=== PATIENT | female | born 1995 | race Caucasian/White ===

== ENCOUNTER 2017-11-19 07:44 | Emergency (ER) | payer SELFPAY ==
[~2017-11-19] VITALS: Ht 152.4 cm; Wt 70.0 kg
[~2017-11-19 07:44] MED LIST: POLY10O LEFT EYE
[2017-11-19 07:50] VITALS: BP 131/81; PULSE 80; RESP 16; TEMP 97.5; O2SAT 99
[2017-11-19] MEDS ORDERED: SODIUM CHLOR 0.9% 1000 ML INJ 1,000 ML IV ONE (08:30)
[2017-11-19] MEDS ORDERED: KETOROLAC TROMETHAMINE 30 MG/ML (IVP) VIAL IV PUSH ONE (08:30)
[2017-11-19] MEDS ORDERED: ONDANSETRON HCL 4 MG/2 ML VIAL IV PUSH ONE (08:30)
[2017-11-19 09:10] LABS: AUTOMATED NEUTROPHIL # 10.4 TH/MM3 (1.8-7.7); BASOPHIL # 0.1 TH/MM3 (0-0.2); BASOPHIL % 0.4 % (0.0-2.0); EOSINOPHIL # 0.1 TH/MM3 (0-0.4); EOSINOPHIL % 0.7 % (0.0-4.0); HEMATOCRIT 43.7 % (35.0-46.0); HEMOGLOBIN 15.8 GM/DL (11.6-15.3); LYMPH % 13.7 % (9.0-44.0); LYMPHOCYTE # 1.8 TH/MM3 (1.0-4.8); MEAN CELL VOLUME 82.3 FL (80.0-100.0); MEAN CORPUSCULAR HEMOGLOBIN 29.8 PG (27.0-34.0); MONO % 4.7 % (0.0-8.0); MONOCYTE # 0.6 TH/MM3 (0-0.9); NEUT % 80.5 % (16.0-70.0); PLATELET COUNT 399 TH/MM3 (150-450); RED BLOOD COUNT 5.32 MIL/MM3 (4.00-5.30); WHITE BLOOD COUNT 12.9 TH/MM3 (4.0-11.0)
[2017-11-19 09:13] LABS: MEAN CORPUSCULAR HGB CONC 36.2 % (32.0-36.0)
[2017-11-19 09:29] LABS: BACTERIA, URINE MANY /hpf; BILIRUBIN, URINE NEG (NEG); BLOOD, URINE SMALL (NEG); GLUCOSE,URINE NEG (NEG); KETONE, URINE 10 mg/dL (NEG); MUCUS URINE FEW /lpf (OCC); NITRITE,URINE NEG (NEG); PH, URINE 8.5 (5.0-8.5); SQUAMOUS EPITHELIAL CELL URINE 34 /hpf (0-5); URINE COLOR YELLOW (YELLW/STRAW); URINE LEUKOCYTE ESTERASE LARGE (NEG)
[2017-11-19 09:38] LABS: ALBUMIN 4.8 GM/DL (3.4-5.0); AST (GOT) 21 U/L (15-37); BICARBONATE 23.9 MEQ/L (21.0-32.0); BLOOD UREA NITROGEN 15 MG/DL (7-18); CHLORIDE 101 MEQ/L (98-107); CREATININE 1.11 MG/DL (0.50-1.00); GLOMERULAR FILTRATION RATE 61 ML/MIN (>89); GLUCOSE,RANDOM 119 MG/DL (74-106); SODIUM (NA) 136 MEQ/L (136-145)
--- NOTE | 2017-11-19 09:39 | RADRPT ---
EXAM DATE/TIME: 11/19/2017 09:23 [place] COMPARISON: No previous studies available for comparison. INDICATIONS : Left sided flank pain ORAL CONTRAST: No oral contrast ingested. RADIATION DOSE: 5.59 CTDIvol (mGy) MEDICAL HISTORY : None SURGICAL HISTORY : None. ENCOUNTER: Initial ACUITY: 1 day PAIN SCALE: 7/10 LOCATION: Left flank TECHNIQUE: Volumetric scanning of the abdomen and pelvis was performed. Using automated exposure control and ad justment of the mA and/or kV according to patient size, radiation dose was kept as low as reasonably achievable to obtain optimal diagnostic quality images. DICOM format image data is available electro nically for review and comparison. FINDINGS: LOWER LUNGS: The visualized lower lungs are clear. LIVER: Homogeneous density without lesion. There is no dilation of the biliary tree. No calcified gallston es. SPLEEN: Normal size without lesion. PANCREAS: Within normal limits. KIDNEYS: 3 x 4 mm obstructing left UVJ calcified calculus with moderate left hydroureteronephrosis and promine nt her nephric stranding. No additional radiopaque renal or ureteral calculi. No significant contour deforming abnormality. ADRENAL GLANDS: Within normal limits. VASCULAR: There is no aortic aneurysm. BOWEL/MESENTERY: The stomach, small bowel, and colon demonstrate no acute abnormality. Normal appendix. There is no f ree intraperitoneal air or fluid. ABDOMINAL WALL: Within normal limits. RETROPERITONEUM: There is no lymphadenopathy. BLADDER: Nearly completely decompressed. REPRODUCTIVE: Within normal limits. INGUINAL: There is no lymphadenopathy or hernia. MUSCULOSKELETAL: Within normal limits for patient age. CONCLUSION: 1. 3 x 4 mm obstructing distal left UVJ calcified ureteral calculus with associated moderate left hyd roureteronephrosis. Prominent perinephric stranding is nonspecific but may be seen with superimposed pyonephrosis. Clinical correlation is recommended. Thomas Pierce MD on November 19, 2017 at 9:34 Board Certified Radiologist. This report was verified electronically.
[2017-11-19 09:41] LABS: ALKALINE PHOSPHATASE 82 U/L (45-117); ALT (GPT) 26 U/L (10-53); TOTAL BILIRUBIN ADULT 0.5 MG/DL (0.2-1.0); TOTAL PROTEIN 8.1 GM/DL (6.4-8.2)
[2017-11-19] MEDS ORDERED: cefTRIAXone INJ 1,000 MG in SODIUM CHLORIDE 0.9% INJ 100 ML IV ONE (10:00)
[2017-11-19] MEDS ORDERED: CIPR-9 PO (10:09)
[2017-11-19] MEDS ORDERED: TAMS5CAP PO (10:09)
[2017-11-19] MEDS ORDERED: ZOFR4TAB3 SL (10:09)
[2017-11-19] MEDS ORDERED: NORC5TAB PO (10:09)
--- NOTE | 2017-11-19 10:09 | PD ---
HPI Chief Complaint: Abdominal Pain Time Seen by Provider: 08:16 Travel History International Travel<30 days: No Contact w/Intl Traveler<30days: No Traveled to known affect area: No History of Present Illness HPI Patient is a 22 year old female who comes in complaining of right flank pain with nausea and vomiting that started this morning. She says she woke up with the pain around 6AM and noticed blood in her urine. She denies fever or chills. She says "I don't feel good." She has irregular periods. She denies vaginal discharge. She says she used ecstasy 2 days ago and is not sure if this is related. She denies other drug use. She says she is having regular bowel movements. She has not taken anything for her symptoms at home. Severity is moderate. PFSH Past Medical History ADHD: Yes Developmental Delay: No Immunizations Current: Yes ?: Not LMP: UNKNOWN Social History Alcohol Use: No Tobacco Use: Yes (1 CIGARETTE DAY) Substance Use: Yes ([facility]) Allergies-Medications (Allergen,Severity, Reaction): Coded Allergies: No Known Allergies (Verified , 02/28/15) Reported Meds & Prescriptions Reported Meds & Active Scripts Active [place] (Hydrocodone-Acetaminophen) 5 Mg-325 Mg Tab 1 Tab PO Q6H PRN Zofran Odt (Ondansetron Odt) 4 Mg Tab 4 Mg SL Q6HR PRN Flomax (Tamsulosin HCl) 0.4 Mg Cap 0.4 Mg PO HS 7 Days Cipro (Ciprofloxacin HCl) 500 Mg Tab 500 Mg PO BID 14 Days Polytrim Opth (Polymyxin/Trimethoprim Sulfate) 10 Ml Soln 1 Drop LEFT EYE Q3HR 7 Days Review of Systems Except as stated in HPI: all other systems reviewed are Neg General / Constitutional: No: Fever, Chills HENT: No: Headaches, Lightheadedness Cardiovascular: No: Chest Pain or Discomfort Respiratory: No: Shortness of Breath Gastrointestinal: Positive: Nausea, Vomiting Genitourinary: Positive: Dysuria, Hematuria, Flank Pain Musculoskeletal: No: Myalgias, Edema Skin: No Rash, No Change in Pigmentation Neurologic: No: Weakness, Dizziness Physical Exam Narrative GENERAL: Awake and alert, in mild distress due to pain. SKIN: Focused skin assessment warm/dry. HEAD: Atraumatic. Normocephalic. EYES: Pupils equal and round. No scleral icterus. ENT: Mucous membranes pink and moist. NECK: Trachea midline. No JVD. CARDIOVASCULAR: Regular rate and rhythm. No murmur appreciated. RESPIRATORY: No accessory muscle use. Clear to auscultation. Breath sounds equal bilaterally. GASTROINTESTINAL: Abdomen soft, nondistended. Left CVA tenderness, mild LLQ tenderness. MUSCULOSKELETAL: No obvious deformities. No clubbing. No cyanosis. No edema. NEUROLOGICAL: Awake and alert. No obvious cranial nerve deficits. Motor grossly within normal limits. Normal speech. PSYCHIATRIC: Appropriate mood and affect; insight and judgment normal. Data Data Last Documented VS Vital Signs Date Time Temp Pulse Resp B/P (MAP) Pulse Ox O2 Delivery O2 Flow Rate FiO2 11/19/17 13:15 72 15 122/74 (90) 99 11/19/17 12:00 Room Air 11/19/17 07:50 97.5 Orders Orders Complete Blood Count With Diff (11/19/17 08:05) Comprehensive Metabolic Panel (11/19/17 08:05) Urinalysis - C+S If Indicated (11/19/17 08:05) Ed Urine Pregnancytest Poc (11/19/17 08:05) Iv Access Insert/Monitor (11/19/17 08:05) Oxygen Administration (11/19/17 08:05) Oximetry (11/19/17 08:05) Lipase (11/19/17 08:05) Sodium Chlor 0.9% 1000 Ml Inj (Ns 1000 M (11/19/17 08:30) Ondansetron Inj (Zofran Inj) (11/19/17 08:30) Ketorolac Inj (Toradol Inj) (11/19/17 08:30) Creatine Kinase (Cpk) (11/19/17 08:28) Ct Abd/Pel W/O Iv Contrast (11/19/17 ) Urine Culture (11/19/17 09:00) Ceftriaxone Inj (Rocephin Inj) (11/19/17 10:00) Ed Discharge Order (11/19/17 10:40) Mandatory Outpatient Referral (11/19/17 10:40) Labs Laboratory Tests Test 11/19/17 08:45 11/19/17 09:00 White Blood Count 12.9 TH/MM3 Red Blood Count 5.32 MIL/MM3 Hemoglobin 15.8 GM/DL Hematocrit 43.7 % Mean Corpuscular Volume 82.3 FL Mean Corpuscular Hemoglobin 29.8 PG Mean Corpuscular Hemoglobin Concent 36.2 % Red Cell Distribution Width 13.0 % Platelet Count 399 TH/MM3 Mean Platelet Volume 7.0 FL Neutrophils (%) (Auto) 80.5 % Lymphocytes (%) (Auto) 13.7 % Monocytes (%) (Auto) 4.7 % Eosinophils (%) (Auto) 0.7 % Basophils (%) (Auto) 0.4 % Neutrophils # (Auto) 10.4 TH/MM3 Lymphocytes # (Auto) 1.8 TH/MM3 Monocytes # (Auto) 0.6 TH/MM3 Eosinophils # (Auto) 0.1 TH/MM3 Basophils # (Auto) 0.1 TH/MM3 CBC Comment AUTO DIFF Differential Comment AUTO DIFF CONFIRMED Blood Urea Nitrogen 15 MG/DL Creatinine 1.11 MG/DL Random Glucose 119 MG/DL Total Protein 8.1 GM/DL Albumin 4.8 GM/DL Calcium Level 10.0 MG/DL Alkaline Phosphatase 82 U/L Aspartate Amino Transf (AST/SGOT) 21 U/L Alanine Aminotransferase (ALT/SGPT) 26 U/L Total Bilirubin 0.5 MG/DL Sodium Level 136 MEQ/L Potassium Level 3.8 MEQ/L Chloride Level 101 MEQ/L Carbon Dioxide Level 23.9 MEQ/L Anion Gap 11 MEQ/L Estimat Glomerular Filtration Rate 61 ML/MIN Total Creatine Kinase 181 U/L Lipase 172 U/L Urine Color YELLOW Urine Turbidity CLOUDY Urine pH 8.5 Urine Specific [place] 1.028 Urine Protein 100 mg/dL Urine Glucose (UA) NEG mg/dL Urine Ketones 10 mg/dL Urine Occult Blood SMALL Urine Nitrite NEG Urine Bilirubin NEG Urine Urobilinogen 2.0 MG/DL Urine Leukocyte Esterase LARGE Urine RBC 117 /hpf Urine WBC 9 /hpf Urine Squamous Epithelial Cells 34 /hpf Urine Bacteria MANY /hpf Urine Mucus FEW /lpf Microscopic Urinalysis Comment CULTURE INDICATED MDM Medical Decision Making Medical Screen Exam Complete: Yes Emergency Medical Condition: Yes Medical Record Reviewed: Yes Differential Diagnosis Renal stone vs UTI vs pyelonephritis Narrative Course Patient is a 22 year old female who comes in complaining of left flank pain with nausea. Exam shows left CVA tenderness. IV established, labs sent. Given IVF, Toradol, Zofran. CT abd/pelvis performed shows an obstructing renal stone and likely pyelonephritis. Last 24 hours Impressions Abdomen/Pelvis CT 11/19/17 0000 Signed Impressions: Service Date/Time: Sunday, November 19, 2017 09:23 - CONCLUSION: 1. 3 x 4 mm obstructing distal left UVJ calcified ureteral calculus with associated moderate left hydroureteronephrosis. Prominent perinephric stranding is nonspecific but may be seen with superimposed pyonephrosis. Clinical correlation is recommended. Thomas Pierce MD Labs show a WBC count of 12.9. Cr is 1.11. Urinalysis is positive for RBCs, WBCs, bacteria. Patient given a dose of Rocephin. She is able to drink without vomiting. She will be discharged with prescriptions for Cipro, pain medicine, Zofran. Advised to drink plenty of fluids. Mandatory referral placed to urology. Advised to return at any time for any worsening symptoms. I spoke with Dr. Garay of urology, who is agreeable with discharge at this time. Diagnosis Primary Impression: Renal stone Additional Impression: Pyelonephritis Referrals: Bernardino Garay MD call for appointment Patient Instructions: General Instructions, Kidney Infection (ED), Kidney Stones (ED) Additional Instructions: Take all of your antibiotic. Take the anti-nausea medication as needed and pain medicine as needed. You can also take Ibuprofen as needed. Drink plenty of fluids. Return at any time if you develop fevers, can't keep fluids or medications down, or have any other worsening symptoms. Follow up with urology. Scripts Hydrocodone-Acetaminophen ([place]) 5 Mg-325 Mg Tab 1 TAB PO Q6H Y for PAIN, #12 TAB 0 Refills Prov: Jessi Holder MD 11/19/17 Ondansetron Odt (Zofran Odt) 4 Mg Tab 4 MG SL Q6HR Y for Nausea/Vomiting, #12 TAB 0 Refills Prov: Jessi Holder MD 11/19/17 Tamsulosin (Flomax) 0.4 Mg Cap 0.4 MG PO HS for Manage Prostate Problems for 7 Days, #7 CAP 0 Refills Prov: Jessi Holder MD 11/19/17 Ciprofloxacin (Cipro) 500 Mg Tab 500 MG PO BID for Infection for 14 Days, #28 TAB 0 Refills Prov: Jessi Holder MD 11/19/17 Disposition: 01 DISCHARGE HOME Condition: Stable Jessi Holder MD Nov 19, 2017 10:09
[2017-11-19 12:00] VITALS: BP 130/82; PULSE 74; RESP 16
[2017-11-19 13:15] VITALS: BP 122/74
== END 2017-11-19 13:30 | disposition home or self-care (01) ==
LOC: NEPE 07:44
DX: N13.6 Pyonephrosis (principal); F17.210 Nicotine dependence, cigarettes, uncomplicated; F12.90 Cannabis use, unspecified, uncomplicated
CPT/HCPCS: 74176; 80053; 81001; 82550; 83690; 84703; 85025; 87086; 96374; 96375; 99284; J0696; J1885; J2405; J7030